=== PATIENT | male | born 2000 | race Caucasian/White ===

== ENCOUNTER 2024-04-14 09:30 | Outpatient (CLI) | payer OTHER ==
--- NOTE | 2024-04-14 11:05 | XRAY Report ---
PROCEDURE: Shoulder 2+V BL INDICATIONS: BILAT SHOULDER JOINT PAIN TECHNIQUE: 3 views of the shoulder were acquired. COMPARISON: None. FINDINGS: There is no evidence for acute fracture or dislocation involving the patient's left shoulder. There may be a mild left AC separation age-indeterminate. Visualized soft tissues appear within normal limits. No significant glenohumeral joint degenerative change is seen. IMPRESSION: 1. No evidence for acute osseous abnormality involving the patient's left shoulder. 2. Question mild AC separation age-indeterminate. If further evaluation is clinically indicated an MR I of the left shoulder may be of further clinical value. Reviewed by: Justyn Sutton MD on 04/14/2024 11:04 AM PDT Approved by: Justyn Sutton MD on 04/14/2024 11:04 AM PDT Station ID: [id number]
== END 2024-04-14 09:45 | disposition home or self-care (01) ==
LOC: DI.N 09:30
PROVIDERS: ATTEND Physician Assistant Medical
DX: M25.511 Pain in right shoulder (principal)